=== PATIENT | female | born 1965 | race Caucasian/White ===

== ENCOUNTER 2016-08-27 04:57 | Emergency (ER) | payer BC ==
[~2016-08-27] VITALS: Ht 157.5 cm; Wt 84.8 kg
[~2016-08-27 04:57] MED LIST: SERT50TA PO
[2016-08-27 05:10] VITALS: BP 139/84; PULSE 79; RESP 16; TEMP 97.6; O2SAT 98
[2016-08-27] MEDS ORDERED: NACL 0.9% 1,000 ML IV ONE (05:10)
--- NOTE | 2016-08-27 05:10 | NUR ---
Placed in room 8 . Placed on clinical laboratory aides teacher, blood pressure machine and pulse oximeter. To gown for exam. Side rails up.
--- NOTE | 2016-08-27 05:11 | NUR ---
MD malone at bedside examining pt
--- NOTE | 2016-08-27 05:11 | NUR ---
Pt presents to ER with c/o R flank pain since yesterday's morning and nausea. Pt denies difficulty urinating. A&Ox4, denies SOB or chestpain, denies V/D. SKin intact. Will continue to monitor
[2016-08-27] MEDS ORDERED: KETOROLAC TROMETHAMINE 30 MG VIAL IVP ONE (05:15)
[2016-08-27] MEDS ORDERED: ONDANSETRON HCL 4 MG/2 ML VIAL IVP ONE (05:15)
[2016-08-27] MEDS ORDERED: MORPHINE 4 MG/ML INJ. SYRINGE IVP ONE (06:00)
[2016-08-27 06:01] LABS: BASOPHILS % (AUTO) 0.2 % (0.0-2.0); EOSINOPHILS # (AUTO) 0.3 K/uL (0.0-0.4); EOSINOPHILS % (AUTO) 3.1 % (0.0-4.0); HEMATOCRIT 37.4 % (36-48); LYMPHOCYTES # (AUTO) 1.8 K/uL (1.0-5.5); LYMPHOCYTES % (AUTO) 19.2 % (20.5-51.5); MEAN CORPUSCULAR HEMOGLOBIN 31 pg (27-31); MEAN CORPUSCULAR HGB CONC 35 % (32-36); MEAN CORPUSCULAR VOLUME 89 fL (79.0-98.0); MONOCYTES # (AUTO) 0.6 K/uL (0.0-1.0); MONOCYTES % (AUTO) 6.3 % (1.7-9.3); NEUTROPHILS # (AUTO) 6.6 K/uL (1.8-7.7); NEUTROPHILS % (AUTO) 71.2 % (40.0-70.0); PLATELET COUNT (AUTO) 352 K/uL (130-430); RED CELL DISTRIBUTION WIDTH 12.6 % (9.0-15.0); WHITE BLOOD COUNT (AUTO) 9.3 K/uL (4.8-10.8)
[2016-08-27 06:08] LABS: CALCIUM 8.7 mg/dL (8.4-11.0); CREATININE 0.7 mg/dL (0.55-1.30); POTASSIUM 4.1 mmol/L (3.5-5.1)
[2016-08-27 06:18] LABS: ALBUMIN 3.3 g/dL (3.4-4.8); TOTAL BILIRUBIN 0.7 mg/dL (0.0-1.0); TOTAL PROTEIN, SERUM 7.4 g/dL (6.4-8.3)
[2016-08-27 06:20] LABS: INR 0.9 (0.8-1.2)
[2016-08-27 06:27] LABS: BILIRUBIN,URINE NEGATIVE (NEGATIVE); BLOOD, URINE 2+ (NEGATIVE); CLARITY/URINE SL CLOUDY (CLEAR); COLOR,URINE YELLOW (YELLOW); GLUCOSE,URINE NEGATIVE (NEGATIVE); KETONES,URINE NEGATIVE (NEGATIVE); LEUKOCYTE ESTERASE ,URINE 1+ (NEGATIVE); NITRITE, URINE POSITIVE (NEGATIVE); PROTEIN URINE 2+ (NEGATIVE); UROBILINOGEN,URINE 0.2 (0.2-1.0)
--- NOTE | 2016-08-27 06:51 | NUR ---
Patient given written and verbal discharge instructions and verbalizes understanding. ER MD Ramirez discussed with patient the results and treatment provided.Patient in stable condition. ID arm band removed. IV catheter removed intact and dressing applied, no active bleeding. Rx of tylenol with codeine, zofran given. Patient educated on pain management and to follow up with PMD. Pain Scale 0/10 Opportunity for questions provided and answered.
[2016-08-27 06:52] VITALS: BP 132/76; PULSE 78; RESP 16; TEMP 97.6; O2SAT 98
[2016-08-27 07:20] LABS: RBC,URINE 0-3 /HPF (0-3)
[2016-08-27 07:21] LABS: BACTERIA,URINE MANY /HPF (None Seen); MUCUS,URINE None Seen /LPF (None Seen); WBC,URINE 80-100 /HPF (0-3)
--- NOTE | 2016-08-30 14:03 | NUR ---
Final C & S report reviewed, Cipro to added as per Dr. Cheek. Called patient to discuss finding, message left requesting that the patient call back.
== END 2016-08-27 06:52 | disposition home or self-care (01) ==
LOC: SED 04:57
DX: N20.0 Calculus of kidney (principal); R51 Headache; R06.02 Shortness of breath; R07.9 Chest pain, unspecified; Z82.49 Family history of ischemic heart disease and other diseases of the circulatory system
CPT/HCPCS: 36415; 74176; 80053; 81000; 81025; 82150; 83690; 85025; 85610; 85730; 87086; 87186; 96361; 96374; 96375; 99285; J1885; J2270; J2405; J7030

== ENCOUNTER 2016-09-03 10:04 | Inpatient (IN) | payer BC ==
[~2016-09-03] VITALS: Ht 157.5 cm; Wt 86.2 kg
[2016-09-03 10:14] VITALS: BP 139/87; PULSE 73; RESP 16; TEMP 97.3; O2SAT 98
--- NOTE | 2016-09-03 10:22 | NUR ---
Patient to ER bed 5 to gown for evaluation. Side rails up. Report given to Candelaria GALEAS.
[2016-09-03] MEDS ORDERED: PROCHLORPERAZINE EDISYLATE 10 MG/2 ML VIAL IVP ONE (10:30)
[2016-09-03] MEDS ORDERED: MAG HYDROX/AL HYDROX/SIMETH 30 ML, BELLADONNA ALKALOIDS/PHENOBARB 10 ML, LIDOCAINE VISC... PO ONE ×3 (10:30)
[2016-09-03] MEDS ORDERED: NACL 0.9% 1,000 ML IV ONE ×2 (10:30→12:30)
[2016-09-03] MEDS ORDERED: KETOROLAC TROMETHAMINE 30 MG VIAL IVP ONE (10:30)
[2016-09-03] MEDS ORDERED: ONDANSETRON HCL 4 MG/2 ML VIAL IVP ONE (10:30)
--- NOTE | 2016-09-03 10:31 | NUR ---
DR VALDEZ AT BEDSIDE FOR EVALUATION
[2016-09-03 10:36] LABS: BASOPHILS # (AUTO) 0.1 K/uL (0.0-0.2); BASOPHILS % (AUTO) 0.6 % (0.0-2.0); EOSINOPHILS # (AUTO) 0.2 K/uL (0.0-0.4); EOSINOPHILS % (AUTO) 1.2 % (0.0-4.0); HEMATOCRIT 38.8 % (36-48); HEMOGLOBIN 13.3 g/dL (12.0-16.0); LYMPHOCYTES # (AUTO) 3.2 K/uL (1.0-5.5); LYMPHOCYTES % (AUTO) 18.6 % (20.5-51.5); MEAN CORPUSCULAR HEMOGLOBIN 31 pg (27-31); MEAN CORPUSCULAR HGB CONC 34 % (32-36); MEAN CORPUSCULAR VOLUME 89 fL (79.0-98.0); MONOCYTES # (AUTO) 1.1 K/uL (0.0-1.0); MONOCYTES % (AUTO) 6.2 % (1.7-9.3); NEUTROPHILS # (AUTO) 12.4 K/uL (1.8-7.7); NEUTROPHILS % (AUTO) 73.4 % (40.0-70.0); PLATELET COUNT (AUTO) 446 K/uL (130-430); RED BLOOD CELL COUNT(AUTO) 4.35 MIL/uL (4.2-6.2); RED CELL DISTRIBUTION WIDTH 12.1 % (9.0-15.0)
[2016-09-03 10:44] LABS: CREATININE 0.86 mg/dL (0.55-1.30); POTASSIUM 3.5 mmol/L (3.5-5.1)
[2016-09-03 10:49] LABS: ALBUMIN 3.4 g/dL (3.4-4.8); TOTAL BILIRUBIN 0.8 mg/dL (0.0-1.0); TOTAL PROTEIN, SERUM 7.8 g/dL (6.4-8.3)
--- NOTE | 2016-09-03 11:02 | NUR ---
PT RESTING COMFORTABLY, STATES PAIN IS RELIEVED SINCE MEDICATION.
--- NOTE | 2016-09-03 11:20 | NUR ---
PT STATES UNABLE TO GIVE URINE SPECIMEN AT THIS TIME. WILL MONITOR
[2016-09-03 12:01] LABS: BILIRUBIN,URINE NEGATIVE (NEGATIVE); BLOOD, URINE 3+ (NEGATIVE); CLARITY/URINE SL CLOUDY (CLEAR); COLOR,URINE YELLOW (YELLOW); GLUCOSE,URINE NEGATIVE (NEGATIVE); KETONES,URINE NEGATIVE (NEGATIVE); LEUKOCYTE ESTERASE ,URINE 2+ (NEGATIVE); NITRITE, URINE POSITIVE (NEGATIVE); PH,URINE 5.5 (5.0-8.0); PROTEIN URINE 3+ (NEGATIVE)
[2016-09-03 12:09] LABS: BACTERIA,URINE MODERATE /HPF (None Seen); MUCUS,URINE None Seen /LPF (None Seen); RBC,URINE 0-3 /HPF (0-3); WBC,URINE >100 /HPF (0-3)
[2016-09-03] MEDS ORDERED: cefTRIAXone 1 GM IVPB PREMIX 50 ML IV ONE (12:30)
--- NOTE | 2016-09-03 12:30 | NUR ---
PT STATES PAIN TO UPPER MID ABDOMEN IS COMING BACK, DR VALDEZ AWARE
[2016-09-03] MEDS ORDERED: MORPHINE 4 MG/ML INJ. SYRINGE IVP ONE (12:45)
--- NOTE | 2016-09-03 12:48 | NUR ---
Patient will be admitted to care of DR CULLEN. Admitted to TELE unit. Will go to room 111-B. Belongings list completed. Summary report printed. Report given to NURSE.
[2016-09-03] MEDS ORDERED: MORPHINE 2 MG/ML INJ. SYRINGE IVP PRN (13:00)
[2016-09-03] MEDS ORDERED: ONDANSETRON HCL 4 MG/2 ML VIAL IVP PRN (13:00)
--- NOTE | 2016-09-03 13:05 | NUR ---
ADMISSION NOTE Received patient from ER via gurney. Patient admitted with diagnosis of Pancreatitis. Patient is awake, alert, oriented X 3. Patient oriented to hospital room, call light, toileting, pain management and safety-teach back done. Patient informed that Ted will be her nurse and that their room number is 111 B. Personal belongings checked and Belongings List documented. Call light within reach.
[2016-09-03 13:09] VITALS: BP 130/78; PULSE 68; RESP 18; TEMP 98.7; O2SAT 97
--- NOTE | 2016-09-03 15:32 | NUR ---
PATIENT IS RESTING, NO C/O PAIN AT THIS TIME. WILL CONTINUE TO MONITOR.
[2016-09-03 16:00] VITALS: BP 109/66; PULSE 60; RESP 20; TEMP 97.5; O2SAT 96
--- NOTE | 2016-09-03 18:00 | NUR ---
Patient is rest, family at bedside, no signs of distress noted.
--- NOTE | 2016-09-03 19:33 | NUR ---
INITIAL NOTE Patient resting on the bed comfortable. Respiration even and unlabored. No acute distress. Denied of pain. AO x 4. Skin warm and dry to touch. IV intact, no redness, no swelling, no drainage. On LR at 150ml/hr, infusing well. Discussed the, safety issue, use call light when need help, plan of care, and NPO status, verbally understanding. Safety measure maintained. Call light within reached. Bed in low position, side rails up. Will continue to monitor.
[2016-09-03 19:50] VITALS: BP 110/69; PULSE 62; RESP 18; TEMP 97.5; O2SAT 100
--- NOTE | 2016-09-03 21:46 | NUR ---
NOTE Patient resting on the bed with eyes closed. Respiration even and unlabored. No acute distress. at bedside. Safety measure maintained. Call light within reached. Bed in low position, side rails up. Continue to monitor.
--- NOTE | 2016-09-03 23:35 | NUR ---
ROUND Patient sleeping at this time. Respiration even and unlabored. No acute distress. Safety measure maintained. Call light within reached. Continue to monitor.
[2016-09-04] VITALS: BP 108/67; PULSE 62; RESP 18; TEMP 98.2; O2SAT 84
[2016-09-04] MEDS: LR 1,000 ML IV SCH ×2 (01:25→08:50)
--- NOTE | 2016-09-04 01:25 | NUR ---
ROUND Patient resting on the bed with eyes closed. Respiration even and unlabored. No acute distress. Safety measure maintained. Bed in low position, side rails up. Call light within reached. Continue to monitor.
--- NOTE | 2016-09-04 03:22 | NUR ---
ROUND Patient resting on the bed with eyes closed. No acute distress. Safety measure maintained. Bed in low position, side rails up. Call light within reached. Continue to monitor.
[2016-09-04 04:00] VITALS: BP 109/67; PULSE 63; RESP 18; TEMP 97.8; O2SAT 93
--- NOTE | 2016-09-04 05:09 | NUR ---
ROUND Patient resting on the bed comfortable. Respiration even and unlabored. No acute distress. Call light within reached. Bed in low position, side rails up. Continue to monitor.
--- NOTE | 2016-09-04 06:18 | NUR ---
IV RE-INSERTION: Patient IV occluded. Restarted on right hand. Successful after two attempts. Resumed current IVF of LR and regulated @ 150ml per hour. Will observe for any signs of infiltration.
--- NOTE | 2016-09-04 06:57 | NUR ---
CLOSING NOTE Patient resting on the bed comfortable. Respiration even and unlabored. No acute distress. Denied of pain. Skin warm and dry to touch. IV intact to right hand, no redness, no swelling, no drainage. On LR at 150ml/hr, infusing well. All needs met. Hourly rounding during shift. Safety measure maintained. Call light within reached. Bed in low position, side rails up. Will endorse to morning shift nurse.
[2016-09-04 07:03] LABS: BASOPHILS % (AUTO) 0.1 % (0.0-2.0); EOSINOPHILS # (AUTO) 0.1 K/uL (0.0-0.4); EOSINOPHILS % (AUTO) 1.8 % (0.0-4.0); HEMATOCRIT 32.9 % (36-48); HEMOGLOBIN 11.2 g/dL (12.0-16.0); LYMPHOCYTES # (AUTO) 2.2 K/uL (1.0-5.5); LYMPHOCYTES % (AUTO) 30.2 % (20.5-51.5); MEAN CORPUSCULAR HEMOGLOBIN 31 pg (27-31); MEAN CORPUSCULAR HGB CONC 34 % (32-36); MEAN CORPUSCULAR VOLUME 90 fL (79.0-98.0); MONOCYTES # (AUTO) 0.5 K/uL (0.0-1.0); MONOCYTES % (AUTO) 6.7 % (1.7-9.3); NEUTROPHILS # (AUTO) 4.4 K/uL (1.8-7.7); NEUTROPHILS % (AUTO) 61.2 % (40.0-70.0); PLATELET COUNT (AUTO) 352 K/uL (130-430); RED BLOOD CELL COUNT(AUTO) 3.66 MIL/uL (4.2-6.2); RED CELL DISTRIBUTION WIDTH 12.4 % (9.0-15.0)
[2016-09-04 07:16] LABS: ALBUMIN 2.6 g/dL (3.4-4.8); CALCIUM 8.1 mg/dL (8.4-11.0); CREATININE 0.73 mg/dL (0.55-1.30); POTASSIUM 3.9 mmol/L (3.5-5.1); TOTAL BILIRUBIN 0.6 mg/dL (0.0-1.0); TOTAL PROTEIN, SERUM 6.3 g/dL (6.4-8.3)
[2016-09-04 07:19] LABS: WHITE BLOOD COUNT (AUTO) 7.2 K/uL (4.8-10.8)
[2016-09-04 08:00] VITALS: BP 105/66; PULSE 64; RESP 16; TEMP 97.6; O2SAT 94
--- NOTE | 2016-09-04 08:00 | NUR ---
PATIENT AT REST, A/OX4. IV ON RIGHT FA, #22, INFUSED WITH LR 150ML/HR, INTACT AND PATENT. NO C/O PAIN AT THIS TIME. PATIENT IS COMFORTABLE. CALL LIGHT IN PLACE, BED AT LOWEST POSITION, INSTRUCTED PATIENT TO USE CALL LIGHT FOR NEEDS.
[2016-09-04] MEDS ORDERED: SERTRALINE HCL 50 MG TABLET PO SCH (09:00)
--- NOTE | 2016-09-04 10:00 | NUR ---
PATIENT IS RESTING, NO ABDOMINAL PAIN, BUT DOES C/O HEADACHE 3-4/10. NO UNILATERAL WEAKNESS, FACIAL DROOPING, DROOLING NOTED. WILL INFORM DR. CULLEN.
[2016-09-04 10:07] LABS: CHOLESTEROL 187 mg/dL (<200); HDL CHOLESTEROL 57 mg/dL (>55); LDL CHOLESTEROL 103 mg/dL (<100); TRIGLYCERIDES 98 mg/dL (30-150)
[2016-09-04] MEDS ORDERED: ACETAMINOPHEN 325 MG TABLET PO PRN (10:15)
--- NOTE | 2016-09-04 11:10 | NUR ---
PATIENT HAD A CARTON OF OJ. NO SIGNS OF DISCOMFORT NOTED.
[2016-09-04 12:23] VITALS: BP 116/77; PULSE 62; RESP 17; TEMP 96.9; O2SAT 96
[2016-09-04] MEDS ORDERED: cefTRIAXone 1 GM IVPB PREMIX 50 ML IV SCH (13:00)
--- NOTE | 2016-09-04 13:00 | NUR ---
PATIENT IS AT REST, NO SIGNS OF DISTRESS NOTED
--- NOTE | 2016-09-04 14:35 | NUR ---
D/C Patient Patient given medication reconciliation form and D/C instructions. Exit Care provided. Patient verbalized understanding. MD discussed with patient the results and treatment provided. Ambulatory with steady gait for discharge to home. Patient in stable condition, ID band removed. IV catheter removed, intact and dressing applied, no active bleeding. Rx of Septra given. Patient educated on pain management. All belongings sent with patient.
== END 2016-09-04 14:35 | disposition home or self-care (01) | DRG 439 ==
LOC: SED 10:04 → SMU 12:47 → STU 12:51 → SMU 09-04 11:07
DX: K85.90 Acute pancreatitis without necrosis or infection, unspecified (principal); N39.0 Urinary tract infection, site not specified; F32.9 Major depressive disorder, single episode, unspecified
CPT/HCPCS: 36415; 76700-TC; 80053; 80061; 81000-TC; 83605; 83690-TC; 85025; 87040-TC; 87086; 87186-TC; 96361; 96365; 96375; 99285; J0696; J0780; J1885; J2001; J2270; J2405; J7030; J7120

== ENCOUNTER 2017-01-21 05:16 | Emergency (ER) | payer BC ==
[~2017-01-21] VITALS: Ht 157.5 cm; Wt 80.7 kg
[2017-01-21 05:25] VITALS: BP_SYST 135
--- NOTE | 2017-01-21 05:29 | NUR ---
Placed in room 07 . Placed on blood pressure machine and pulse oximeter. To gown for exam. Side rails up. Report given to ADAL Fisher.
--- NOTE | 2017-01-21 05:30 | NUR ---
Patient AAO x4, sitting in bed c/o right eye redness and pressure x 2 days with MEYER 8/10 and numbness to right eye area. Denies blurred vision. Right eye appears red and eye it watery. No drainage to right eye noted. Denies chest pain, denies shortness of breath. No acute distress noted. Will continue to monitor.
--- NOTE | 2017-01-21 05:36 | NUR ---
ER at bedside examining patient.
[2017-01-21 06:14] VITALS: BP_SYST 130
--- NOTE | 2017-01-21 06:14 | NUR ---
Patient given written and verbal discharge instructions and verbalizes understanding. ER MD discussed with patient the results and treatment provided. Patient in stable condition. ID arm band removed. Rx of Ciprofloxacin eye drops given. Patient educated on pain management and to follow up with PMD. Pain Scale 0/10. Opportunity for questions provided and answered.
== END 2017-01-21 06:14 | disposition home or self-care (01) ==
LOC: SED 05:16
DX: H10.9 Unspecified conjunctivitis (principal)
CPT/HCPCS: 99283

== ENCOUNTER 2020-02-18 01:17 | Emergency (ER) | payer BC, OTHER ==
[~2020-02-18] VITALS: Ht 157.5 cm; Wt 84.8 kg
[2020-02-18 01:27] VITALS: BP_SYST 152
[2020-02-18] MEDS ORDERED: NACL 0.9% 1,000 ML IV ONE (01:50)
[2020-02-18] MEDS ORDERED: ONDANSETRON HCL 4 MG/2 ML VIAL IVP ONE (02:00)
[2020-02-18] MEDS ORDERED: DIPHENHYDRAMINE INJ 50 MG/ML VIAL IVP ONE (02:00)
[2020-02-18] MEDS ORDERED: KETOROLAC TROMETHAMINE 30 MG VIAL IVP ONE (02:00)
[2020-02-18 02:23] LABS: BILIRUBIN,URINE NEGATIVE (NEGATIVE); BLOOD, URINE 2+ (NEGATIVE); CLARITY/URINE SL CLOUDY (CLEAR); COLOR,URINE YELLOW (YELLOW); GLUCOSE,URINE NEGATIVE (NEGATIVE); KETONES,URINE NEGATIVE (NEGATIVE); LEUKOCYTE ESTERASE ,URINE NEGATIVE (NEGATIVE); NITRITE, URINE NEGATIVE (NEGATIVE); PROTEIN URINE NEGATIVE (NEGATIVE)
[2020-02-18 02:24] LABS: CALCIUM 9.6 mg/dL (8.4-11.0); CREATININE 1.21 mg/dL (0.55-1.30); POTASSIUM 3.5 mmol/L (3.5-5.1)
[2020-02-18 02:29] LABS: ALBUMIN 3.8 g/dL (3.4-4.8); TOTAL BILIRUBIN 1.3 mg/dL (0.0-1.0)
[2020-02-18 02:34] LABS: BASOPHILS # (AUTO) 0.1 K/uL (0.0-0.2); BASOPHILS % (AUTO) 0.5 % (0.0-2.0); EOSINOPHILS # (AUTO) 0.2 K/uL (0.0-0.4); EOSINOPHILS % (AUTO) 1.7 % (0.0-4.0); HEMATOCRIT 39.4 % (36-48); HEMOGLOBIN 13.3 g/dL (12.0-16.0); LYMPHOCYTES # (AUTO) 2.7 K/uL (1.0-5.5); LYMPHOCYTES % (AUTO) 22.4 % (20.5-51.5); MEAN CORPUSCULAR HEMOGLOBIN 30 pg (27-31); MEAN CORPUSCULAR HGB CONC 34 % (32-36); MEAN CORPUSCULAR VOLUME 88 fL (79.0-98.0); MONOCYTES # (AUTO) 0.8 K/uL (0.0-1.0); MONOCYTES % (AUTO) 6.7 % (1.7-9.3); NEUTROPHILS # (AUTO) 8.3 K/uL (1.8-7.7); NEUTROPHILS % (AUTO) 68.7 % (40.0-70.0); PLATELET COUNT (AUTO) 360 K/uL (130-430); RED BLOOD CELL COUNT(AUTO) 4.45 MIL/uL (4.2-6.2); RED CELL DISTRIBUTION WIDTH 13.3 % (9.0-15.0); WHITE BLOOD COUNT (AUTO) 12.1 K/uL (4.8-10.8)
[2020-02-18] MEDS ORDERED: MORPHINE 2 MG/ML INJ. SYRINGE IVP ONE (02:45)
[2020-02-18 02:54] LABS: BACTERIA,URINE FEW /HPF (None Seen); WBC,URINE 0-3 /HPF (0-3)
[2020-02-18 04:05] VITALS: BP_SYST 139
== END 2020-02-18 04:05 | disposition home or self-care (01) ==
LOC: SED 01:17
DX: N20.1 Calculus of ureter (principal); R19.7 Diarrhea, unspecified; E03.9 Hypothyroidism, unspecified
CPT/HCPCS: 36415; 74176; 80053; 81000; 85025; 96361; 96374; 96375; 99284; J1200; J1885; J2270; J2405; J7030